=== PATIENT | male | born 1960 | race Hispanic/Latino ===

== ENCOUNTER 2020-05-28 13:15 | Observation (INO) | payer OTHER ==
[~2020-05-28] VITALS: Ht 175.3 cm; Wt 97.4 kg
[2020-05-28 12:20] LABS: BASOPHILS % (AUTO) 0.5 % (0.0-5.0); EOSINOPHILS % (AUTO) 2.1 % (0.0-8.0); HEMATOCRIT 46.9 % (42-54); MEAN CORPUSCULAR HEMOGLOBIN 29.4 pg (27.0-33.0); MEAN CORPUSCULAR HGB CONC 31.8 g/dL (32.0-36.0); MEAN CORPUSCULAR VOLUME 92.5 fL (79-99); MONOCYTES % (AUTO) 4.9 % (3.0-13.0); NEUTROPHILS % (AUTO) 67.9 % (40.0-77.0); PLATELET COUNT (AUTO) 272 K/uL (130-400); RED BLOOD CELL COUNT(AUTO) 5.07 MIL/uL (4.50-6.20); RED CELL DISTRIBUTION WIDTH 13.5 % (11.0-15.5); WHITE BLOOD COUNT (AUTO) 8.5 K/uL (4.8-10.8)
[2020-05-28 12:22] LABS: POTASSIUM 4.1 mmol/L (3.5-5.1)
[2020-06-01 09:54] VITALS: BP 113/75
[2020-06-01] MEDS ORDERED: ATOR20TA65 PO (10:37)
[2020-06-01] MEDS ORDERED: [UNRECOGNIZED DRUG - OTHER] PO (10:37)
[2020-06-01] MEDS ORDERED: GABA-533 PO (10:37)
[2020-06-01] MEDS ORDERED: GLIP2.5T2 PO (10:37)
[2020-06-01] MEDS ORDERED: ELDERBERRY PO (10:37)
[2020-06-01] MEDS ORDERED: [UNRECOGNIZED DRUG - OTHER] PO (10:37)
[2020-06-01] MEDS ORDERED: VITAMIN A PO (10:37)
[2020-06-01] MEDS ORDERED: MENS PO (10:37)
[2020-06-01] MEDS ORDERED: ASCO1TAB40 PO (10:37)
[2020-06-01] MEDS ORDERED: VITAMIN B-1 PO (10:37)
[2020-06-01] MEDS ORDERED: ASPI-1443 PO (10:37)
[2020-06-01] MEDS ORDERED: GABA-529 PO (10:37)
[2020-06-02] VITALS (24 sets, daily range): BP systolic 94–132; BP diastolic 52–99
[2020-06-02] MEDS: CEFAZOLIN SODIUM 1 GM VIAL IVP SCH ×2 (06:00→09:00)
[2020-06-02] MEDS ORDERED: THROMBIN-JMI 20000 UNIT KIT TP ONE (06:52)
[2020-06-02] MEDS ORDERED: MORPHINE PF 100MG/10ML AMP IV ONE (06:52)
[2020-06-02] MEDS ORDERED: BUPIVACAINE/EPI/PF 0.5% 30ML VIAL IJ ONE (06:52)
[2020-06-02] MEDS ORDERED: CEFAZOLIN SODIUM 1 GM VIAL ONE (06:52)
[2020-06-02] MEDS ORDERED: LIDOCAINE HCL-MPF 0.5% 50ML VIAL IJ ONE (06:53)
[2020-06-02] MEDS ORDERED: 0.9%NACL 1000ML 1,000 ML IV ONE (06:59)
[2020-06-02] MEDS ORDERED: GABA300C PO (07:39)
[2020-06-02] MEDS ORDERED: PROPOFOL 10 MG/ML 20ML VIAL IV ONE (07:54)
[2020-06-02] MEDS ORDERED: DEXAMETHASONE SOD PHOSPHATE 10MG/ML 1ML VIAL ONE ×2 (07:54→07:57)
[2020-06-02] MEDS ORDERED: SUCCINYLCHOLINE CHLORIDE 20 MG/ML 10 ML VIAL ONE (07:54)
[2020-06-02] MEDS ORDERED: LIDOCAINE PF 100MG/5ML (2%) SYRINGE 5ML ONE (07:54)
[2020-06-02] MEDS ORDERED: GLYCOPYRROLATE 1 MG/5 ML SYRINGE ONE (07:54)
[2020-06-02] MEDS ORDERED: NEOSTIGMINE 5MG/5ML SYR IV ONE (07:55)
[2020-06-02] MEDS ORDERED: ONDANSETRON 4MG INJ ONE (07:55)
[2020-06-02] MEDS ORDERED: ROCURONIUM 10MG/1ML SYR 10 MG/ML ML ONE (07:55)
[2020-06-02] MEDS ORDERED: MIDAZOLAM HCL 1 MG/ML 2ML VIAL ONE (07:55)
[2020-06-02] MEDS ORDERED: FENTANYL CITRATE PF 50 MCG/1 ML 2ML VIAL ONE ×2 (07:56→09:24)
[2020-06-02] MEDS ORDERED: EPHEDRINE SULFATE 50 MG/ML AMPULE ONE (11:02)
[2020-06-02] MEDS ORDERED: MORPHINE 2 MG SYG IVP PRN (12:00)
[2020-06-02] MEDS: LACTATED RINGERS 1000ML 1,000 ML IV SCH (12:00)
[2020-06-02] MEDS: DEXAMETHASONE SOD PHOSPHATE 4 MG/ML 1ML VIAL IVP SCH ×2 (12:00→17:38)
[2020-06-02] MEDS ORDERED: 0.9%NACL 10ML VIAL IVP PRN (12:00)
[2020-06-02] MEDS ORDERED: PROMETHAZINE HCL 25 MG/ML 1ML AMPULE IM PRN (12:00)
[2020-06-02] MEDS: GABAPENTIN 300 MG CAPSULE PO SCH ×2 (15:17→20:14)
[2020-06-02] MEDS ORDERED: CEFAZOLIN SODIUM 1 GM VIAL IVP SCH (17:00)
[2020-06-02] MEDS: INSULIN HUMULIN R 100 UNIT/ML 3ML SQ SCH ×2 (17:40→20:45)
[2020-06-02] MEDS: HYDROCODONE/ACETAMINOPHEN 5/325 MG TAB PO PRN (20:14)
[2020-06-02] MEDS ORDERED: VITAMIN A 25000 UNIT PO SCH ×2 (21:00)
[2020-06-02] MEDS ORDERED: ASPIRIN 81 MG EC TAB PO SCH (21:00)
[2020-06-02] MEDS ORDERED: ATORVASTATIN 20 MG TABLET PO SCH (21:00)
[2020-06-03] MEDS: DEXAMETHASONE SOD PHOSPHATE 4 MG/ML 1ML VIAL IVP SCH ×2 (00:20→06:35)
[2020-06-03] MEDS: LACTATED RINGERS 1000ML 1,000 ML IV SCH (00:20)
[2020-06-03 03:48] VITALS: BP 100/51
[2020-06-03] MEDS: INSULIN HUMULIN R 100 UNIT/ML 3ML SQ SCH (06:43)
[2020-06-03 07:00] VITALS: BP 108/62
[2020-06-03] MEDS: HYDROCODONE/ACETAMINOPHEN 5/325 MG TAB PO PRN (08:16)
[2020-06-03] MEDS: GABAPENTIN 300 MG CAPSULE PO SCH (08:16)
[2020-06-03] MEDS ORDERED: ASCORBIC ACID 500 MG TAB PO SCH (09:00)
[2020-06-03] MEDS ORDERED: ZINC PO SCH (09:00)
[2020-06-03] MEDS ORDERED: VITAMIN B1 PO SCH (09:00)
[2020-06-03] MEDS ORDERED: [UNRECOGNIZED DRUG - OTHER] PO SCH (09:00)
[2020-06-03] MEDS ORDERED: MULTIVITAMIN TABLET PO SCH (09:00)
[2020-06-03] MEDS ORDERED: [UNRECOGNIZED DRUG - OTHER] PO SCH (09:00)
[2020-06-03] MEDS ORDERED: ZINC 50MG PO SCH (09:00)
[2020-06-03] MEDS ORDERED: ELDERBERRY PO SCH ×2 (09:00)
[2020-06-03] MEDS ORDERED: GLIPIZIDE XL 2.5MG TAB PO SCH (09:00)
[2020-06-03] MEDS ORDERED: THIAMINE HCL 100 MG TABLET PO SCH (09:00)
== END 2020-06-03 10:30 | disposition home or self-care (01) ==
LOC: EDSTATUS 13:15 → DAHIP 06-02 06:00 → 3BH 06-02 13:29
PROVIDERS: ADMIT Neurological Surgery; ATTEND Neurological Surgery
DX: M48.061 Spinal stenosis, lumbar region without neurogenic claudication (principal); Z20.822 Contact with and (suspected) exposure to COVID-19; I10 Essential (primary) hypertension; E78.5 Hyperlipidemia, unspecified; E11.9 Type 2 diabetes mellitus without complications; M21.371 Foot drop, right foot; E66.01 Morbid (severe) obesity due to excess calories; Z79.82 Long term (current) use of aspirin; Z79.899 Other long term (current) drug therapy; Z68.31 Body mass index [BMI] 31.0-31.9, adult
CPT/HCPCS: 36415; 63047; 63048; 71045; 72020; 80051; 82948 ×5; 85025; 96361 ×2; 96372 ×2; 96374; 96375; 96376; A4215; A4221; A4222; A4223; A4344; A4600; A4649 ×3; A4663; A6260; G0378 ×22; J0330; J0690 ×3; J1100 ×5; J1815 ×3; J2001; J2250; J2274; J2405; J2704; J2710; J3010 ×2; J3490 ×4; J7030 ×2; J7120; U0003